=== PATIENT | female | born 1975 | race African-American/Black ===

== ENCOUNTER 2016-10-09 11:59 | Inpatient (IN) | payer OTHER ==
[2016-10-09 14:43] VITALS: BMI 28.1
--- NOTE | 2016-10-09 16:04 | HP ---
CIWA Score - CIWA Score Nausea/Vomitin Muscle Tremors: 3 Anxiety: 3 Agitation: 3 Paroxysmal Sweats: 1-Minimal Palms Moist Orientation: 0-Oriented Tacttile Disturbances: 2-Mild Itch/Numbness/Burn Auditory Disturbances: 2-Mild Harshness/Frighten Visual Disturbances: 2-Mild Sensitivity Headache: 2-Mild CIWA-Ar Total Score: 21 Admission ROS BHS - HPI Chief Complaint: i need help to stop drinking alcohol,cocaine,marijuana,heroin abused Allergies/Adverse Reactions: Allergies Allergy/AdvReac Type Severity Reaction Status Date / Time No Known Allergies Allergy Verified 10/09/16 15:44 History of Present Illness: this 41 years old male with alcohol,cocaine and marijuana dependence,heroin abused,seekking help to stop using,last detox 2014 in [place] not completed syncope alcohol related nicotine dependence anxiety and depression insomnia longest period of sobriety 5 years Exam Limitations: No Limitations - Ebola screening Have you traveled outside of the country in the last 21 days: No Have you had contact with anyone from an Ebola affected area: No Have you been sick,other than usual withdrawal symptoms: No - Review of Systems Constitutional: Chills, Loss of Appetite, Malaise, Night Sweats, Changes in sleep, Weakness, Unintentional Wgt. Loss EENT: reports: Nose Congestion Respiratory: reports: No Symptoms reported Cardiac: reports: No Symptoms Reported GI: reports: Diarrhea, Nausea, Vomiting, Abdominal cramping : reports: No Symptoms Reported Musculoskeletal: reports: Back Pain, Muscle Pain Integumentary: reports: Dryness Neuro: reports: Headache, Tremors Endocrine: reports: No Symptoms Reported Hematology: reports: No Symptoms Reported Psychiatric: reports: Anxious, Depressed (insomnia) Patient History - Patient Medical History Hx Anemia: No Hx Asthma: No Hx Chronic Obstructive Pulmonary Disease (COPD): No Hx Cancer: No Hx Cardiac Disorders: No Hx Congestive Heart Failure: No Hx Hypertension: No Hx Hypercholesterolemia: No Hx Pacemaker: No HX Cerebrovascular Accident: No Hx Seizures: No Hx Dementia: No Hx Diabetes: No Hx Gastrointestinal Disorders: No Hx Liver Disease: No Hx Genitourinary Disorders: No Hx Sexually Transmitted Disorders: No Hx Renal Disease (ESRD): No Hx Thyroid Disease: No Hx Human Immunodeficiency Virus (HIV): No (last 02/10 negative) Hx Depression: Yes Hx Suicide Attempt: No Hx Schizophrenia: No Other Medical History: no suicidal,no homicidal - Patient Surgical History Past Surgical History: No - PPD History Previous Implant?: Yes Documented Results: Negative w/o proof Implanted On Prior [facility] Admission?: No PPD to be Administered?: Yes - Reproductive History Patient is a Female of Child Bearing Age (11 -55 yrs old): Yes Last Menstrual Period: 09/30/16 Patient : No - Smoking Cessation Smoking history: Current every day smoker Have you smoked in the past 12 months: Yes Aproximately how many cigarettes per day: 5 Hx Chewing Tobacco Use: No Initiated information on smoking cessation: Yes 'Breaking Loose' booklet given: 10/09/16 - Substance & Tx. History Hx Alcohol Use: Yes Hx Substance Use: Yes Substance Use Type: Alcohol, Cocaine, Marijuana Hx Substance Use Treatment: Yes (last 2014 in [place]) - Substances Abused Alcohol Route: Oral Frequency: Daily Amount used: 3 40 oz beers Age of first use: 8 Date of Last Use: 10/09/16 Cocaine Route: Smoking Frequency: Daily Amount used: $300 Age of first use: 17 Date of Last Use: 10/09/16 Family Disease History - Family Disease History Family History: Denies Admission Physical Exam [facility] - Vital Signs Vital Signs: Vital Signs - 24 hr 10/09/16 14:41 Temperature 96.2 F L Pulse Rate 79 Respiratory 20 Rate Blood Pressure 117/76 - Physical General Appearance: Yes: Moderate Distress, Tremorous, Irritable, Sweating, Anxious HEENTM: Yes: Normal ENT Inspection, [place], Pharynx Normal, Nasal Congestion, Rhinorrhea Respiratory: Yes: Lungs Clear, Normal Breath Sounds, No Respiratory Distress Neck: Yes: Within Normal Limits, Supple, Trachea in good position Breast: Yes: Within Normal Limits Cardiology: Yes: Within Normal Limits, Regular Rhythm, Regular Rate, S1, S2 Abdominal: Yes: Within Normal Limits, Normal Bowel Sounds, Non Tender, Flat, Soft Genitourinary: Yes: Within Normal Limits Back: Yes: Within Normal Limits, Normal Inspection, Muscle Spasm Musculoskeletal: Yes: full range of Motion, Back pain, Muscle Pain Extremities: Yes: Within Normal Limits, Normal Capillary Refill, Normal Inspection, Tremors Neurological: Yes: joint creaser II-XII NML intact, Fully Oriented, Alert, Motor Strength 5/5 Integumentary: Yes: Dry Lymphatic: Yes: Within Normal Limits - Diagnostic (1) Alcohol dependence with uncomplicated withdrawal Current Visit: Yes Status: Acute (2) Cocaine dependence Current Visit: Yes Status: Acute (3) Cannabis dependence Current Visit: Yes Status: Acute (4) Syncope Current Visit: Yes Status: Acute (5) Nicotine dependence Current Visit: Yes Status: Acute (6) Anxiety and depression Current Visit: Yes Status: Acute (7) Insomnia Current Visit: Yes Status: Acute Cleared for Admission [facility] - Detox or Rehab [facility] Level of Care: Medically Managed Detox Regimen/Protocol: Librium [facility] Breath Alcohol Content Breath Alcohol Content: 0 Urine Pregancy Test - Result Urine Test Results: Negative- NO Line Present Urine Drug Screen - Results Drug Screen Negative: No Urine Drug Screen Results: ASYA-Cocaine
[2016-10-09] MEDS ORDERED: LOPERAMIDE HCL 2 MG CAPSULE PO PRN (16:15)
[2016-10-09] MEDS ORDERED: guaiFENesin/D-METHORPHAN HB 10 ML UNIT-DOSE CUPS PO PRN (16:15)
[2016-10-09] MEDS ORDERED: hydrOXYzine PAMOATE 25 MG CAPSULE (FP) PO PRN (16:15)
[2016-10-09] MEDS ORDERED: IBUPROFEN 400 MG TABLET (FP) PO PRN (16:15)
[2016-10-09] MEDS ORDERED: MAGNESIUM HYDROX 2400MG/30ML ORAL SUSPENSION 30 ML CUP PO PRN (16:15)
[2016-10-09] MEDS ORDERED: diphenhydrAMINE HCL 50 MG CAPSULE PO PRN (16:15)
[2016-10-09] MEDS ORDERED: MAG HYDROX/AL HYDROX/SIMETH 30 ML UNIT-DOSE CUP PO PRN (16:15)
[2016-10-09] MEDS ORDERED: ACETAMINOPHEN 325 MG TABLET (FP) PO PRN (16:15)
[2016-10-09] MEDS ORDERED: MAGNESIUM CITRATE 300 ML BOTTLE PO PRN (16:15)
[2016-10-09] MEDS ORDERED: P-EPHED 60MG/TRIPROLIDI 2.5MG TABLET PO PRN (16:15)
[2016-10-09] MEDS ORDERED: chlordiazePOXIDE HCL 25 MG CAPSULE PO PRN (16:15)
[2016-10-09] MEDS ORDERED: chlordiazePOXIDE HCL 25 MG CAPSULE PO ONE (17:30)
[2016-10-09] MEDS: NICOTINE 21 MG/24 HOURS TOPICAL PATCH TD SCH (18:10)
[2016-10-09] MEDS: THIAMINE HCL 100 MG TABLET (FP) PO SCH (22:12)
[2016-10-09] MEDS: chlordiazePOXIDE HCL 25 MG CAPSULE PO SCH (22:12)
[2016-10-10] MEDS: chlordiazePOXIDE HCL 25 MG CAPSULE PO SCH ×4 (05:46→22:57)
--- NOTE | 2016-10-10 08:24 | CONSULT ---
[facility] Psychiatric Consult - Data Date of interview: 10/10/16 Admission source: [facility] Identifying data: This is 41 years old female with no psychiatric hospitalization history intoxicated with: Alcohol, Cocaine, Cannabis and Nicotine Substance Abuse History: - Smoking Cessation. Smoking history: Current every day smoker. Have you smoked in the past 12 months: Yes. Aproximately how many cigarettes per day: 5. Hx Chewing Tobacco Use: No. Initiated information on smoking cessation: Yes. 'Breaking Loose' booklet given: 10/09/16. - Substance & Tx. History. Hx Alcohol Use: Yes. Hx Substance Use: Yes. Substance Use Type : Alcohol, Cocaine, Marijuana. Hx Substance Use Treatment: Yes (last 2014 in [place]). - Substances Abused. Alcohol. Route: Oral. Frequency: Daily. Amount used: 3 40 oz beers. Age of first use: 8. Date of Last Use: 10/09/16. Cocaine. Route: Smoking. Frequency: Daily. Amount used: $300. Age of first use: 17. Date of Last Use: 10/09/16 Medical History: Syncope history Psychiatric History: Patient re[prts history of depression and anxiety, reports taking prior to adsmission: Prozac 20mg poqd. Abilify 10mg poqd. Seroquel 100mg po qhs. Vistaril 25mg po prn q4 for anxiety Physical/Sexual Abuse/Trauma History: Denies Additional Comment: Prozac 20mg poqd. Abilify 10mg poqd. Seroquel 100mg po qhs. Vistaril 25mg po prn q4 for anxiety Mental Status Exam - Mental Status Exam Alert and Oriented to: Person Cognitive Function: Fair Patient Appearance: Well Groomed Mood: Anxious Affect: Mood Congruent Patient Behavior: Appropriate Speech Pattern: Appropriate Voice Loudness: Normal Thought Process: Goal Oriented Thought Disorder: Being Controlled Hallucinations: Denies Suicidal Ideation: Denies Homicidal Ideation: Denies Insight/Judgement: Fair Sleep: Difficulty falling asleep Appetite: Weight gain Muscle strength/Tone: Normal Gait/Station: Normal Additional Comments: Prozac 20mg poqd. Abilify 10mg poqd. Seroquel 100mg po qhs. Vistaril 25mg po prn q4 for anxiety Psychiatric Findings - Problem List ([place] 1, 2,3) (1) Alcohol dependence with uncomplicated withdrawal Current Visit: Yes Status: Acute (2) Cannabis dependence Current Visit: Yes Status: Acute (3) Cocaine dependence Current Visit: Yes Status: Acute (4) Nicotine dependence Current Visit: Yes Status: Acute (5) Drug-induced mood disorder Current Visit: Yes Status: Acute - Initial Treatment Plan Initial Treatment Plan: Prozac 20mg poqd. Abilify 10mg poqd. Seroquel 100mg po qhs. Vistaril 25mg po prn q4 for anxiety
[2016-10-10 09:46] LABS: MCH 27.3 pg (25.7-33.7); MCHC 33.3 g/dl (32.0-36.0); MEAN PLT VOLUME 9.2 fl (7.5-11.1); PLATELET COUNT 348 K/MM3 (134-434); RDW 15.3 % (11.6-15.6); WHITE BLOOD COUNT 10.8 K/mm3 (4.0-10.0)
[2016-10-10] MEDS: ARIPiprazole 5 MG TABLET (FP) PO SCH (10:20)
[2016-10-10] MEDS: NICOTINE 21 MG/24 HOURS TOPICAL PATCH TD SCH (10:20)
[2016-10-10] MEDS: PRENATAL VITAMINS W/ FOLIC ACID TABLET (FP) PO SCH (10:20)
[2016-10-10] MEDS: FLUoxetine HCL 20 MG CAPSULE (FP) PO SCH (10:20)
[2016-10-10 10:24] LABS: SICKLE CELL SCREEN POSITIVE (NEGATIVE)
--- NOTE | 2016-10-10 11:46 | PN ---
S CIWA - CIWA Score Nausea/Vomitin Muscle Tremors: 3 Anxiety: 3 Agitation: 2 Paroxysmal Sweats: 1-Minimal Palms Moist Orientation: 0-Oriented Tacttile Disturbances: 1-Very Mild Itch/Numbness Auditory Disturbances: 1-Very Mild Visual Disturbances: 1-Very Mild Sensitivity Headache: 2-Mild CIWA-Ar Total Score: 17 BHS Progress Note (SOAP) Subjective: ALERT,IRRITABLE,ANXIOUS,INTERRUPTED SLEEP,TREMOR Objective: 10/10/16 11:44 Vital Signs Temperature 98.8 F 10/10/16 09:43 Pulse Rate 85 10/10/16 09:43 Respiratory Rate 20 10/10/16 09:43 Blood Pressure 131/81 10/10/16 09:43 O2 Sat by Pulse Oximetry (%) 10/10/16 11:45 EKG NSR Laboratory Last Values WBC 10.8 K/mm3 (4.0-10.0) H 10/10/16 06:00 RBC 3.98 M/mm3 (3.60-5.2) 10/10/16 06:00 Hgb 10.9 GM/dL (10.7-15.3) 10/10/16 06:00 Hct 32.6 % (32.4-45.2) 10/10/16 06:00 MCV 82.0 fl (80-96) 10/10/16 06:00 MCHC 33.3 g/dl (32.0-36.0) 10/10/16 06:00 RDW 15.3 % (11.6-15.6) 10/10/16 06:00 Plt Count 348 K/MM3 (134-434) 10/10/16 06:00 MPV 9.2 fl (7.5-11.1) 10/10/16 06:00 Sickle Cell Screen Positive (NEGATIVE) 10/10/16 06:00 LABS PENDING Assessment: 10/10/16 11:45 WITHDRAWAL SYMPTOM Plan: CONTINUE DETOX
--- NOTE | 2016-10-10 12:41 | EKG ---
Test Reason : Blood Pressure : / mmHG Vent. Rate : 072 BPM Atrial Rate : 072 BPM P-R Int : 158 ms QRS Dur : 078 ms QT Int : 426 ms P-R-T Axes : 063 053 047 degrees QTc Int : 466 ms NORMAL SINUS RHYTHM NORMAL ECG NO PREVIOUS ECGS AVAILABLE Confirmed by BARI CHACON MD ([id number]) on 10/10/2016 12:41:19 PM Referred By: Confirmed By:BARI CHACON MD
[2016-10-10 13:20] LABS: ALBUMIN 3.6 g/dl (3.4-5.0); ALK PHOS 78 U/L (45-117); ANION GAP 6 (8-16); BILIRUBIN,TOTAL 0.2 mg/dL (0.2-1.0); CALCIUM 8.7 mg/dL (8.5-10.1); CO2 30 mmol/L (21-32); CREATININE 0.9 mg/dL (0.55-1.02); GLUCOSE,RANDOM 95 mg/dL (74-106); SGOT/AST 20 U/L (15-37); SGPT/ALT 20 U/L (12-78); TOT PROT 6.9 g/dl (6.4-8.2)
[2016-10-10 14:40] LABS: HIV 1 & 2 AB NEGATIVE; HIV 1 AGp24 NEGATIVE
[2016-10-10 20:03] LABS: URINE APPEARANCE SLCLOUDY; URINE BILIRUBIN NEGATIVE (NEGATIVE); URINE BLOOD NEGATIVE (NEGATIVE); URINE COLOR LTYELLOW; URINE GLUCOSE (UA) NEGATIVE (NEGATIVE); URINE KETONE NEGATIVE (NEGATIVE); URINE NITRITE NEGATIVE (NEGATIVE); URINE PROTEIN NEGATIVE (NEGATIVE); URINE UROBILINOGEN NEGATIVE E.U./dl (0.2-1.0)
[2016-10-10 20:06] LABS: URINE LEUK ESTERASE 1+ (NEGATIVE)
[2016-10-10 20:10] LABS: URINE BACTERIA RARE /hpf (NONE SEEN); URINE MUCUS RARE; URINE RBC 2 /hpf (0-3); URINE WBC 2 /hpf (3-5); YEAST RARE
[2016-10-10] MEDS: QUEtiapine FUMARATE 100 MG TABLET (FP) PO SCH (22:58)
[2016-10-10] MEDS: THIAMINE HCL 100 MG TABLET (FP) PO SCH (22:58)
[2016-10-11] MEDS: chlordiazePOXIDE HCL 25 MG CAPSULE PO SCH ×3 (06:29→17:22)
--- NOTE | 2016-10-11 09:58 | PN ---
S CIWA - CIWA Score Nausea/Vomitin Muscle Tremors: 3 Anxiety: 3 Agitation: 2 Paroxysmal Sweats: 1-Minimal Palms Moist Orientation: 0-Oriented Tacttile Disturbances: 1-Very Mild Itch/Numbness Auditory Disturbances: 1-Very Mild Visual Disturbances: 1-Very Mild Sensitivity Headache: 2-Mild CIWA-Ar Total Score: 17 BHS Progress Note (SOAP) Subjective: alert,irritable,anxious,interrupted sleep,aching pin Objective: 10/11/16 09:56 Vital Signs Temperature 98.1 F 10/11/16 07:09 Pulse Rate 71 10/11/16 07:09 Respiratory Rate 16 10/11/16 07:09 Blood Pressure 118/88 10/11/16 07:09 O2 Sat by Pulse Oximetry (%) Laboratory Last Values WBC 10.8 K/mm3 (4.0-10.0) H 10/10/16 06:00 RBC 3.98 M/mm3 (3.60-5.2) 10/10/16 06:00 Hgb 10.9 GM/dL (10.7-15.3) 10/10/16 06:00 Hct 32.6 % (32.4-45.2) 10/10/16 06:00 MCV 82.0 fl (80-96) 10/10/16 06:00 MCHC 33.3 g/dl (32.0-36.0) 10/10/16 06:00 RDW 15.3 % (11.6-15.6) 10/10/16 06:00 Plt Count 348 K/MM3 (134-434) 10/10/16 06:00 MPV 9.2 fl (7.5-11.1) 10/10/16 06:00 Sickle Cell Screen Positive (NEGATIVE) 10/10/16 06:00 Sodium 142 mmol/L (136-145) 10/10/16 06:00 Potassium 3.5 mmol/L (3.5-5.1) 10/10/16 06:00 Chloride 106 mmol/L (98-107) 10/10/16 06:00 Carbon Dioxide 30 mmol/L (21-32) 10/10/16 06:00 Anion Gap 6 (8-16) L 10/10/16 06:00 BUN 10 mg/dL (7-18) 10/10/16 06:00 Creatinine 0.9 mg/dL (0.55-1.02) 10/10/16 06:00 Creat Clearance w eGFR > 60 (>60) 10/10/16 06:00 Random Glucose 95 mg/dL (74-106) 10/10/16 06:00 Calcium 8.7 mg/dL (8.5-10.1) 10/10/16 06:00 Total Bilirubin 0.2 mg/dL (0.2-1.0) 10/10/16 06:00 AST 20 U/L (15-37) 10/10/16 06:00 ALT 20 U/L (12-78) 10/10/16 06:00 Alkaline Phosphatase 78 U/L (45-117) 10/10/16 06:00 Total Protein 6.9 g/dl (6.4-8.2) 10/10/16 06:00 Albumin 3.6 g/dl (3.4-5.0) 10/10/16 06:00 Urine Color Ltyellow 10/10/16 13:00 Urine Appearance Slcloudy 10/10/16 13:00 Urine pH 6.0 (5.0-8.0) 10/10/16 13:00 Ur Specific [place] 1.010 (1.005-1.025) 10/10/16 13:00 Urine Protein Negative (NEGATIVE) 10/10/16 13:00 Urine Glucose (UA) Negative (NEGATIVE) 10/10/16 13:00 Urine Ketones Negative (NEGATIVE) 10/10/16 13:00 Urine Blood Negative (NEGATIVE) 10/10/16 13:00 Urine Nitrite Negative (NEGATIVE) 10/10/16 13:00 Urine Bilirubin Negative (NEGATIVE) 10/10/16 13:00 Urine Urobilinogen Negative E.U./dl (0.2-1.0) 10/10/16 13:00 Ur Leukocyte Esterase 1+ (NEGATIVE) H 10/10/16 13:00 Urine RBC 2 /hpf (0-3) 10/10/16 13:00 Urine WBC 2 /hpf (3-5) 10/10/16 13:00 Ur Epithelial Cells Moderate /hpf (FEW) 10/10/16 13:00 Urine Bacteria Rare /hpf (NONE SEEN) 10/10/16 13:00 Urine Mucus Rare 10/10/16 13:00 Urine Yeast Rare 10/10/16 13:00 RPR Titer Nonreactive (NONREACTIVE) 10/10/16 06:00 HIV 1&2 Antibody Screen Negative 10/09/16 15:00 HIV P24 Antigen Negative 10/09/16 15:00 Assessment: 10/11/16 09:57 withdrawal symptom Plan: continue detox,patient has history of sickle cell trait
[2016-10-11] MEDS: PRENATAL VITAMINS W/ FOLIC ACID TABLET (FP) PO SCH (10:36)
[2016-10-11] MEDS: FLUoxetine HCL 20 MG CAPSULE (FP) PO SCH (10:36)
[2016-10-11] MEDS: ARIPiprazole 5 MG TABLET (FP) PO SCH (10:36)
[2016-10-11] MEDS: NICOTINE 21 MG/24 HOURS TOPICAL PATCH TD SCH ×2 (10:37→10:43)
[2016-10-11] MEDS: NICOTINE POLACRILEX 2 MG GUM BC PRN (10:42)
[2016-10-11] MEDS: THIAMINE HCL 100 MG TABLET (FP) PO SCH (22:55)
[2016-10-11] MEDS: QUEtiapine FUMARATE 100 MG TABLET (FP) PO SCH (22:55)
[2016-10-11] MEDS: chlordiazePOXIDE 5 MG CAPSULE PO SCH (23:12)
[2016-10-12] MEDS: MENTHOL/PHENOL 1 EACH UD MM PRN ×2 (01:55→10:28)
[2016-10-12] MEDS: chlordiazePOXIDE 5 MG CAPSULE PO SCH ×3 (06:59→18:19)
[2016-10-12] MEDS: ARIPiprazole 5 MG TABLET (FP) PO SCH (10:25)
[2016-10-12] MEDS: FLUoxetine HCL 20 MG CAPSULE (FP) PO SCH (10:25)
[2016-10-12] MEDS: PRENATAL VITAMINS W/ FOLIC ACID TABLET (FP) PO SCH (10:25)
[2016-10-12] MEDS: NICOTINE 21 MG/24 HOURS TOPICAL PATCH TD SCH (10:26)
[2016-10-12] MEDS: NICOTINE POLACRILEX 2 MG GUM BC PRN (10:28)
[2016-10-12 14:47] VITALS: BP 126/75; PULSE 82; TEMP 97.3
--- NOTE | 2016-10-12 14:59 | PN ---
BHS Progress Note (SOAP) Subjective: Sweating,interrupted sleep,restless Objective: 10/12/16 14:58 Vital Signs - 8 hr 10/12/16 10/12/16 10:00 14:45 Temperature 97.7 F 97.3 F L Pulse Rate 76 82 Respiratory 16 16 Rate Blood Pressure 128/68 126/75 Laboratory Last Values WBC 10.8 K/mm3 (4.0-10.0) H 10/10/16 06:00 RBC 3.98 M/mm3 (3.60-5.2) 10/10/16 06:00 Hgb 10.9 GM/dL (10.7-15.3) 10/10/16 06:00 Hct 32.6 % (32.4-45.2) 10/10/16 06:00 MCV 82.0 fl (80-96) 10/10/16 06:00 MCHC 33.3 g/dl (32.0-36.0) 10/10/16 06:00 RDW 15.3 % (11.6-15.6) 10/10/16 06:00 Plt Count 348 K/MM3 (134-434) 10/10/16 06:00 MPV 9.2 fl (7.5-11.1) 10/10/16 06:00 Sickle Cell Screen Positive (NEGATIVE) 10/10/16 06:00 Sodium 142 mmol/L (136-145) 10/10/16 06:00 Potassium 3.5 mmol/L (3.5-5.1) 10/10/16 06:00 Chloride 106 mmol/L (98-107) 10/10/16 06:00 Carbon Dioxide 30 mmol/L (21-32) 10/10/16 06:00 Anion Gap 6 (8-16) L 10/10/16 06:00 BUN 10 mg/dL (7-18) 10/10/16 06:00 Creatinine 0.9 mg/dL (0.55-1.02) 10/10/16 06:00 Creat Clearance w eGFR > 60 (>60) 10/10/16 06:00 Random Glucose 95 mg/dL (74-106) 10/10/16 06:00 Calcium 8.7 mg/dL (8.5-10.1) 10/10/16 06:00 Total Bilirubin 0.2 mg/dL (0.2-1.0) 10/10/16 06:00 AST 20 U/L (15-37) 10/10/16 06:00 ALT 20 U/L (12-78) 10/10/16 06:00 Alkaline Phosphatase 78 U/L (45-117) 10/10/16 06:00 Total Protein 6.9 g/dl (6.4-8.2) 10/10/16 06:00 Albumin 3.6 g/dl (3.4-5.0) 10/10/16 06:00 Urine Color Ltyellow 10/10/16 13:00 Urine Appearance Slcloudy 10/10/16 13:00 Urine pH 6.0 (5.0-8.0) 10/10/16 13:00 Ur Specific [place] 1.010 (1.005-1.025) 10/10/16 13:00 Urine Protein Negative (NEGATIVE) 10/10/16 13:00 Urine Glucose (UA) Negative (NEGATIVE) 10/10/16 13:00 Urine Ketones Negative (NEGATIVE) 10/10/16 13:00 Urine Blood Negative (NEGATIVE) 10/10/16 13:00 Urine Nitrite Negative (NEGATIVE) 10/10/16 13:00 Urine Bilirubin Negative (NEGATIVE) 10/10/16 13:00 Urine Urobilinogen Negative E.U./dl (0.2-1.0) 10/10/16 13:00 Ur Leukocyte Esterase 1+ (NEGATIVE) H 10/10/16 13:00 Urine RBC 2 /hpf (0-3) 10/10/16 13:00 Urine WBC 2 /hpf (3-5) 10/10/16 13:00 Ur Epithelial Cells Moderate /hpf (FEW) 10/10/16 13:00 Urine Bacteria Rare /hpf (NONE SEEN) 10/10/16 13:00 Urine Mucus Rare 10/10/16 13:00 Urine Yeast Rare 10/10/16 13:00 RPR Titer Nonreactive (NONREACTIVE) 10/10/16 06:00 HIV 1&2 Antibody Screen Negative 10/09/16 15:00 HIV P24 Antigen Negative 10/09/16 15:00 labs noted Assessment: 10/12/16 14:59 withdrawal sx. Plan: Continue detox
--- NOTE | 2016-10-12 18:46 | DS ---
[facility] Detox Discharge Summary Admission Date: 10/09/16 Discharge Date: 10/12/16 - History Present History: Alcohol Dependence, Cannabis Dependence, Cocaine Dependence Pertinent Past History: Insomnia - Physical Exam Results Vital Signs: Vital Signs Temperature 97.3 F L 10/12/16 14:45 Pulse Rate 82 10/12/16 14:45 Respiratory Rate 16 10/12/16 14:45 Blood Pressure 126/75 10/12/16 14:45 O2 Sat by Pulse Oximetry (%) Pertinent Admission Physical Exam Findings: withdrawal sx. Laboratory Last Values WBC 10.8 K/mm3 (4.0-10.0) H 10/10/16 06:00 RBC 3.98 M/mm3 (3.60-5.2) 10/10/16 06:00 Hgb 10.9 GM/dL (10.7-15.3) 10/10/16 06:00 Hct 32.6 % (32.4-45.2) 10/10/16 06:00 MCV 82.0 fl (80-96) 10/10/16 06:00 MCHC 33.3 g/dl (32.0-36.0) 10/10/16 06:00 RDW 15.3 % (11.6-15.6) 10/10/16 06:00 Plt Count 348 K/MM3 (134-434) 10/10/16 06:00 MPV 9.2 fl (7.5-11.1) 10/10/16 06:00 Sickle Cell Screen Positive (NEGATIVE) 10/10/16 06:00 Sodium 142 mmol/L (136-145) 10/10/16 06:00 Potassium 3.5 mmol/L (3.5-5.1) 10/10/16 06:00 Chloride 106 mmol/L (98-107) 10/10/16 06:00 Carbon Dioxide 30 mmol/L (21-32) 10/10/16 06:00 Anion Gap 6 (8-16) L 10/10/16 06:00 BUN 10 mg/dL (7-18) 10/10/16 06:00 Creatinine 0.9 mg/dL (0.55-1.02) 10/10/16 06:00 Creat Clearance w eGFR > 60 (>60) 10/10/16 06:00 Random Glucose 95 mg/dL (74-106) 10/10/16 06:00 Calcium 8.7 mg/dL (8.5-10.1) 10/10/16 06:00 Total Bilirubin 0.2 mg/dL (0.2-1.0) 10/10/16 06:00 AST 20 U/L (15-37) 10/10/16 06:00 ALT 20 U/L (12-78) 10/10/16 06:00 Alkaline Phosphatase 78 U/L (45-117) 10/10/16 06:00 Total Protein 6.9 g/dl (6.4-8.2) 10/10/16 06:00 Albumin 3.6 g/dl (3.4-5.0) 10/10/16 06:00 Urine Color Ltyellow 10/10/16 13:00 Urine Appearance Slcloudy 10/10/16 13:00 Urine pH 6.0 (5.0-8.0) 10/10/16 13:00 Ur Specific [place] 1.010 (1.005-1.025) 10/10/16 13:00 Urine Protein Negative (NEGATIVE) 10/10/16 13:00 Urine Glucose (UA) Negative (NEGATIVE) 10/10/16 13:00 Urine Ketones Negative (NEGATIVE) 10/10/16 13:00 Urine Blood Negative (NEGATIVE) 10/10/16 13:00 Urine Nitrite Negative (NEGATIVE) 10/10/16 13:00 Urine Bilirubin Negative (NEGATIVE) 10/10/16 13:00 Urine Urobilinogen Negative E.U./dl (0.2-1.0) 10/10/16 13:00 Ur Leukocyte Esterase 1+ (NEGATIVE) H 10/10/16 13:00 Urine RBC 2 /hpf (0-3) 10/10/16 13:00 Urine WBC 2 /hpf (3-5) 10/10/16 13:00 Ur Epithelial Cells Moderate /hpf (FEW) 10/10/16 13:00 Urine Bacteria Rare /hpf (NONE SEEN) 10/10/16 13:00 Urine Mucus Rare 10/10/16 13:00 Urine Yeast Rare 10/10/16 13:00 RPR Titer Nonreactive (NONREACTIVE) 10/10/16 06:00 HIV 1&2 Antibody Screen Negative 10/09/16 15:00 HIV P24 Antigen Negative 10/09/16 15:00 labs noted - Treatment Hospital Course: Discharged Condition Good (Pt. was seen by nurse having coital sex which is a violation of unit's rules. Pt. is medically stable to be discharged.) - Medication Discharge Medications: Ambulatory Orders Aripiprazole [Abilify -] 5 mg PO DAILY #30 tablet 10/10/16 Fluoxetine HCl [Prozac -] 20 mg PO DAILY #30 cap 10/10/16 Hydroxyzine Pamoate [Vistaril -] 25 mg PO Q4H PRN #90 cap 10/10/16 Quetiapine Fumarate [Seroquel] 100 mg PO HS #30 tablet 10/10/16 - Diagnosis (1) Alcohol dependence with uncomplicated withdrawal Current Visit: Yes Status: Acute (2) Cannabis dependence Current Visit: Yes Status: Acute (3) Cocaine dependence Current Visit: Yes Status: Acute Qualifiers: Substance use status: uncomplicated Qualified Code(s): F14.20 - Cocaine dependence, uncomplicated (4) Drug-induced mood disorder Current Visit: Yes Status: Acute (5) Insomnia Current Visit: Yes Status: Acute (6) Nicotine dependence Current Visit: Yes Status: Acute Qualifiers: Nicotine product type: cigarettes Substance use status: uncomplicated Qualified Code(s): F17.210 - Nicotine dependence, cigarettes, uncomplicated - AMA Did Patient Leave Against Medical Advice: No (Non-compliant with unit's rules( having coital sex))
[2016-10-12] MEDS ORDERED: chlordiazePOXIDE HCL 10 MG CAPSULE PO SCH (23:00)
== END 2016-10-12 04:42 | disposition home or self-care (01) | DRG 774 ==
LOC: YASAS 11:59 → Y6N 17:09
PROVIDERS: ADMIT Internal Medicine; ATTEND Internal Medicine
PROC: HZ2ZZZZ Detoxification Services for Substance Abuse Treatment (ICD-10-PCS; principal; 2016-10-09)
DX: F10.230 Alcohol dependence with withdrawal, uncomplicated (principal); F14.20 Cocaine dependence, uncomplicated; F12.20 Cannabis dependence, uncomplicated; F17.210 Nicotine dependence, cigarettes, uncomplicated; F19.24 Other psychoactive substance dependence with psychoactive substance-induced mood disorder; F41.8 Other specified anxiety disorders; F91.8 Other conduct disorders; G47.00 Insomnia, unspecified; Z86.79 Personal history of other diseases of the circulatory system; Z59.0 Homelessness
CPT/HCPCS: 36415; 80053; 81003; 81015; 83021; 85027; 85660; 86593; 87389; 93005; 93010